=== PATIENT | male | born 1950 | race Caucasian/White ===

== ENCOUNTER 2023-11-25 07:19 | Day surgery (SDC) | payer MEDICARE ==
[~2023-11-25] VITALS: Ht 188 cm; Wt 140.6 kg
[~2023-11-25 07:19] MED LIST: BACTRIM DS 8001 TAB PO; BETAPACE 120MG120 MG PO; CEPHALEXIN500 M1 PO; COUMADIN 5MG5 MG/TAB PO; COZAAR100 MG PO; HCTZ 25MG TAB25 MG PO; KLOR-CON M2020 MEQ PO; LIPITOR 80MG80 MG PO; LOTENSIN40 MG PO; NORCO 325 MG-51 TAB PO; NORVASC 5MG5 MG/TAB PO; Ondansetron 4 MG/2 ML VIAL IV PRN; PRILOSEC 20MG20 MG PO
[2023-11-25] MEDS ORDERED: LR 1,000 ML IV SCH (07:45)
[2023-11-25] MEDS ORDERED: LASIX 40MG TABL40 MG PO (08:08)
[2023-11-25] MEDS ORDERED: ALLEGRA 180MG180 MG PO (08:09)
[2023-11-25] MEDS ORDERED: ALAVERT10 M1 PO (08:09)
[2023-11-25] MEDS ORDERED: PREDNISONE 5MG5 MG PO (08:10)
[2023-11-25] MEDS ORDERED: ALDACTONE 25MG25 M1 PO (08:10)
[2023-11-25] MEDS ORDERED: TOPROL XL100 MG PO (08:11)
[2023-11-25] MEDS ORDERED: MICARDIS80 MG PO (08:11)
[2023-11-25] MEDS ORDERED: MINOXIDIL 10 PO (08:12)
[2023-11-25] MEDS ORDERED: COUMADIN 1010 MG/TAB PO (08:18)
--- NOTE | 2023-11-25 08:34 | NUR ---
Pt arrived with , reviewed allergies/history/meds, consents reviewed and signed, VSS; PIV to [facility] 22G.
[2023-11-25 08:36] VITALS: BP 120/60; PULSE 89; TEMP 97.8
[2023-11-25 09:25] VITALS: BP 85/58; PULSE 83; TEMP 97.6
--- NOTE | 2023-11-25 09:25 | NUR ---
The patient arrived back to [facility] from the endoscopy suite at this time. The patient appears alert and oriented at this time. Post procedure vital signs were started at this time. The patient's is at his bedside at this time. The patient agrees to try some cranberry juice and a muffin. Call light is within reach. Warm blanket provided. The patient denies any further needs at this time.
[2023-11-25 09:40] VITALS: BP 124/41; PULSE 84
--- NOTE | 2023-11-25 09:40 | NUR ---
The patient appeared to tolerate the food and drink well. The patient denies wanting anything furthe at this time. Vital signs appear stable. remains at bedside.
[2023-11-25 09:50] VITALS: BP 104/57; PULSE 73
--- NOTE | 2023-11-25 10:04 | NUR ---
The patient was escorted out via wheelchair to a private vehicle by [facility] The patient's belolngings and discharge paperwork were sent with him. The patient's is present to drive him home.
== END 2023-11-25 10:04 | disposition home or self-care (01) ==
LOC: SDCO 07:19
DX: Z12.11 Encounter for screening for malignant neoplasm of colon (principal); D12.4 Benign neoplasm of descending colon; D12.2 Benign neoplasm of ascending colon
CPT/HCPCS: J2704; J7120

== ENCOUNTER 2023-12-28 11:00 | Outpatient (RCR) | payer MEDICARE ==
[~2023-12-28 11:00] MED LIST changes: +ALAVERT10 M1 PO; +ALDACTONE 25MG25 M1 PO; +ALLEGRA 180MG180 MG PO; +COUMADIN 1010 MG/TAB PO; +K-DUR20 MEQ PO; -KLOR-CON M2020 MEQ PO; +LASIX 40MG TABL40 MG PO; +MICARDIS80 MG PO; +MINOXIDIL 10 PO; -Ondansetron 4 MG/2 ML VIAL IV PRN; +PREDNISONE 5MG5 MG PO; +TOPROL XL100 MG PO
[2024-01-18] MEDS ORDERED: EDECRIN25 M1 (11:34)
[2024-01-18] MEDS ORDERED: EDECRIN25 M1 PO (14:14)
[2024-01-18] MEDS ORDERED: CLARITIN 1010 MG/TAB PO (14:23)
== END 2023-12-29 | disposition home or self-care (01) ==
LOC: WSPT
DX: I89.0 Lymphedema, not elsewhere classified (principal)

== ENCOUNTER 2024-03-06 11:02 | Day surgery (SDC) | payer MEDICARE ==
[~2024-03-06] VITALS: Ht 188 cm; Wt 145.5 kg
[~2024-03-06 11:02] MED LIST changes: +CLARITIN 1010 MG/TAB PO; +EDECRIN25 M1; +EDECRIN25 M1 PO; +IMODIUM 2MG CAPS2 MG PO
[2024-03-06] MEDS ORDERED: Ondansetron 4 MG/2 ML VIAL IV ONE (11:10)
[2024-03-06] MEDS ORDERED: NS 1,000 ML IV ONE (11:30)
[2024-03-06 11:54] LABS: BASO % 0.3 % (0.0-2.0); EOS # 0.7 K/mm3 (0.0-0.7); EOS % 4.8 % (0.0-4.0); GRAN # 11.5 K/mm3 (1.4-6.5); GRAN % 76.4 % (42.2-75.2); LYMPH # 1.5 K/mm3 (1.2-3.4); LYMPH % 9.8 % (20.0-51.0); MEAN CELL VOLUME 102 fl (80.0-100.0); MEAN CORPUSCULAR HEMOGLOBIN 32 pg (27-31); MEAN CORPUSCULAR HGB CONC 32 g/dl (33.0-37.0); MEAN PLATELET VOLUME 11.1 fl (7.4-10.4); MONO # 1.2 K/mm3 (0.1-0.6); MONO % 8.3 % (1.7-9.3); PLATELET COUNT 177 K/mm3 (130-400); RED BLOOD COUNT 3.42 M/mm3 (4.20-5.60); REDCELL DISTRIBUTION WIDTH-CV 14.6 % (11.5-14.5)
[2024-03-06 11:55] LABS: HEMATOCRIT 34.9 % (42.0-52.0)
[2024-03-06 12:12] LABS: ALBUMIN 2.4 g/dL (3.4-4.8); BILIRUBIN,TOTAL 1.1 mg/dL (0.2-1.2); CALCIUM 7.7 mg/dL (8.4-10.2); CREATININE, serum 1.13 mg/dL (0.72-1.25); POTASSIUM 3.6 mEq/L (3.5-4.5); TOTAL PROTEIN 4.5 g/dl (6.2-8.1)
[2024-03-06] MEDS ORDERED: PLAVIX 75MG TAB75 MG PO (12:24)
[2024-03-06] MEDS ORDERED: COUMADIN 5MG5 MG/TAB PO ×2 (12:25→12:26)
[2024-03-06] MEDS ORDERED: ASPIRIN 81M81 MG/TA2 PO (12:37)
[2024-03-06 13:00] VITALS: BP 140/88; PULSE 87
[2024-03-06] MEDS ORDERED: *Potassium Replacement Protocol MC SCH (13:30)
[2024-03-06] MEDS ORDERED: ceFAZolin 2 G in Water For Injection,Sterile 20 ML IV SCH (14:02)
[2024-03-06] MEDS ORDERED: Ondansetron 4 MG/2 ML VIAL IV SCH (14:06)
[2024-03-06] MEDS ORDERED: Nitroglycerin/D5W 250 ML IV SCH (14:13)
[2024-03-06] MEDS ORDERED: 1/2 NS 1,000 ML IV SCH (14:15)
[2024-03-06 15:05] LABS: HEMOGLOBIN 10.8 g/dl (13.5-18.0)
[2024-03-06 15:06] LABS: HEMATOCRIT 32.7 % (42.0-52.0)
[2024-03-06] MEDS ORDERED: fentaNYL 50 MCG/ML 2 ML VIAL IV SCH (15:35)
[2024-03-06] MEDS ORDERED: Midazolam 2 MG/2 ML VIAL IV SCH (15:36)
[2024-03-06] MEDS ORDERED: Iohexol 350 - 100 ML VIAL IA ONE (15:38)
--- NOTE | 2024-03-06 16:11 | NUR ---
PATIENT TRANSFERRED VIA SLIDE TO EMS STRETCHER AND MANUAL PRESSURE TO RIGHT GROIN RESUMED PER DR. COX'S ORDERS. PATIENT'S SPOUSE CALLED WITH UPDATE AND REPORT CALLED TO NIKKI LIGHT RN. PATIENT TO TRANSFER VIA EMS TO ROOM 215. SHEATH TO LEFT GROIN REMAINS IN PLACE, SUTURED AND DRESSED WITH GAUZE AND TEGADERM INSTRUCTED.
--- NOTE | 2024-03-06 18:30 | NUR ---
Contacted by bunk house worker prior to patient arrival in ED, requesting femstop. Understood patient to be coming from Dr. Martinez's office based lab with groin complications. Femstop given to Nicolas from ED, along with phone number if assistance needed. Dr. Martinez contacted label designer control room, advised he had complete physician to physician report, plan was for patient to stabilize in ER, then eventually come to label designer, potentially after stay in the ICU to assess right groin site. Dr. Martinez advised patient had a wire, inflated, balloon and sheath in the left femoral to address complications from right femoral access. Nicolas from ED contacted this RN when patient arrived. Assisted [facility] to apply femstop to patient's right groin. Sheath in place in left groin, with balloon and wire. Advised caution to ED staff with all patient movements. Contacted Dr. Martinez for orders for sheath management, Dr. Martinez advised to attempt to pull back, and establish pressure bag if sheath pulled back easily. Sheath did not pull back easily, no presssure bag placed. Dr. Martinez showed at patient's bed side, addressed hematoma, advised it was stable. Stopped by ER to check on Nicolas who was managing patient who advised hematoma was worse. Hematoma noted to have increased. Dr. Martinez contacted, patient taken to label designer per Dr. Martinez's verbal orders. Verbal consent obtained, witnessed by Nicolas RN and this RN. Patient transferred to label designer, manual pressure maintained on hematoma as much as possible during transfer & procedure. See merge chron log for procedure charting. Dr. Martinez elects to transfer patient to [facility]. Patient transferred to [facility]. Per Dr. Martinez's orders to EMS nitro was titrated down to 10mcg/min to maintain blood pressure between systolic 120 and 140. Manual pressure held for transit. At time of transfer to [facility] PACU 3 hematoma was still firm, but had decreased in size. Receiving staff deny questions.
[2024-03-06] MEDS ORDERED: Atorvastatin 80 MG TAB PO SCH (21:00)
[2024-03-07] MEDS ORDERED: Omeprazole 20 MG **** subs to Pantoprazole 40 MG PO SCH (07:00)
[2024-03-07] MEDS ORDERED: Loratadine 10 MG TAB PO SCH (09:00)
== END 2024-03-06 15:00 | disposition designated cancer center or children's hospital (05) ==
LOC: COL.ER 11:02 → EUO 12:15 → COL.ER 12:15 → ICU 12:15 → EUO 15:00
PROVIDERS: Family Medicine; Internal Medicine Interventional Cardiology
DX: L76.32 Postprocedural hematoma of skin and subcutaneous tissue following other procedure (principal); I73.9 Peripheral vascular disease, unspecified; L97.929 Non-pressure chronic ulcer of unspecified part of left lower leg with unspecified severity; L97.919 Non-pressure chronic ulcer of unspecified part of right lower leg with unspecified severity; I89.0 Lymphedema, not elsewhere classified; I48.91 Unspecified atrial fibrillation; Z79.899 Other long term (current) drug therapy; Z79.01 Long term (current) use of anticoagulants; Z79.82 Long term (current) use of aspirin; Z79.02 Long term (current) use of antithrombotics/antiplatelets
CPT/HCPCS: OP; C1769; J0690; J1644; J2250; J2305; J2405; J3010; J7030; P9016; Q9967